=== PATIENT | male | born 2000 | race Caucasian/White ===

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

== ENCOUNTER 2023-04-06 21:52 | Emergency (ER) | payer OTHER ==
[2023-04-06 22:01] VITALS: BP 123/64; PULSE 80; RESP 18; TEMP 98; BMI 27.9
[2023-04-06] MEDS ORDERED: predniSONE 20 MG TABLET (UD) PO ONE (23:26)
[2023-04-06] MEDS ORDERED: guaiFENesin/D-METHORPHAN HB 10 ML UNIT-DOSE CUPS PO ONE (23:26)
[2023-04-06] MEDS ORDERED: ACETAMINOPHEN 500 MG TABLET (FP) PO ONE (23:26)
[2023-04-06] MEDS ORDERED: predniSONE 20 MG TABLET (UD) ONE (23:30)
[2023-04-06] MEDS ORDERED: ACETAMINOPHEN 500 MG TABLET (FP) ONE (23:31)
[2023-04-06] MEDS ORDERED: guaiFENesin/D-METHORPHAN HB 10 ML UNIT-DOSE CUPS ONE (23:31)
[2023-04-07 00:05] LABS: THROAT:GRP A STREP NOT DETECTED (NOTDETECTED)
== END 2023-04-07 00:03 | disposition home or self-care (01) ==
LOC: JERFT 21:52
DX: J02.9 Acute pharyngitis, unspecified (principal); R09.89 Other specified symptoms and signs involving the circulatory and respiratory systems; R05.9 Cough, unspecified; J40 Bronchitis, not specified as acute or chronic; Z20.822 Contact with and (suspected) exposure to COVID-19
CPT/HCPCS: 0241U-QW; 71046-TC-FY; 87651; 99284-25